=== PATIENT | male | born 1940 | race Caucasian/White ===

== ENCOUNTER 2019-06-03 22:59 | Inpatient (IN) ==
[2019-06-04] MEDS ORDERED: TYLENOL 325 MG TAB PO ONE ×2 (01:56→02:02)
[2019-06-04 02:30] LABS: BASOPHILS # (AUTO) 0.2 X10^3/uL (0.0-0.1); BASOPHILS % (AUTO) 0.9 % (0.2-1.0); EOSINOPHILS % (AUTO) 0.2 % (0.9-2.9); HEMATOCRIT 37.4 % (42.0-54.0); HEMOGLOBIN 12.6 g/dL (13.5-18.0); LYMPHOCYTES # (AUTO) 4.2 X10^3/uL (1.3-2.9); LYMPHOCYTES % (AUTO) 18.1 % (21.0-51.0); MEAN CORPUSCULAR HEMOGLOBIN 29.9 pg (27.0-34.0); MEAN CORPUSCULAR HGB CONC 33.6 g/dL (33.0-35.0); MEAN CORPUSCULAR VOLUME 88.9 fL (80.0-100.0); MEAN PLATELET VOLUME 9.3 fL (7.4-11.0); MONOCYTES # (AUTO) 1.7 x10^3/uL (0.3-0.8); MONOCYTES % (AUTO) 7.2 % (0.0-13.0); NEUTROPHILS % (AUTO) 73.6 % (42.0-75.0); PLATELET COUNT 282 X10^3/uL (150.0-450.0); RED CELL DISTRIBUTION WIDTH 14.3 % (11.6-16.5); WHITE BLOOD COUNT 23.1 X10^3/uL (3.6-10.0)
[2019-06-04 02:37] LABS: CALCIUM 9.2 mg/dL (8.5-10.1); CARBON DIOXIDE 27.8 mmol/L (21-32); CREATININE 1.53 mg/dL (0.70-1.30)
[2019-06-04 03:02] LABS: BAND NEUTROPHILS % 2 % (0-10); PLATELET MORPHOLOGY COMMENT NORMAL (NORMAL)
[2019-06-04] MEDS ORDERED: LEVAQUIN PREMIX IV 750 MG 750 MG/150 ML BAG IV ONE ×2 (03:20→03:28)
[2019-06-04] MEDS ORDERED: ROCEPHIN VIAL 1 GRAM IVP ONE (03:23)
--- NOTE | 2019-06-04 03:23 | DR.SCROTAL ---
HPI Time Seen Time Seen by Provider: 06/04/19 01:43 Complaint Chief Complaint Doctors Comments: 78 yo male with scrotal swelling and worsening pain. It has been present for ~3 wks, saw urology on . He has failure of outpt abx, pain worsened and having fevers now. The patient refused any other pain meds at this time. He denies recent sexual encounter. 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 IT IS PUFFED UP AND HARD." Self Treatment fo Chief Complaint: PT WENT TO DR ZARCO IN [place] ON TUESDAY AND RECIEVED AN ANTIBIOTIC THAT THE PATIENT STATES HE IS ALLERGIC TO. Reviewed Nurses Notes Review: Yes Source History Provided: Patient and Significant Other Mode of Arrival Mode of Arrival: Ambulatory Timing Onset of Chief Complaint: 05/23/19 PMH PMH Past Medical History: Yes Past Medical History: Diabetes Past Medical History Comment: CHRONIC LYMPHOCYTIC LEUKEMIA, PROSTATE CANCER Past Surgical History: Yes Past Surgical History Comment: PROSTATE CA, RIGHT TESTICLE REMOVED 2002 Family History History of Family Medical Conditions: Yes Family Medical History: Diabetes Mellitus, Cancer and [place] Social History Alcohol Use: None Do you use any recreational Drugs:: No Lives With: Spouse Lives Where: Home infectious screening In the last 2 months have you had wt loss of >10#?: NO Have you had fever, night sweats or hemotysis?: No Have you traveled outside the country in the last 6 months?: No Isolation: Standard ROS Review of Systems Constitutional: Fever and Fatigue Eyes: No Symptoms Reported ENTM: No Symptoms Reported Respiratoy: No Symptoms Reported Cardiovascular: No Symptoms Reported Gastrointestinal/Abdominal: Nausea Genitourinary: Pain (scrotal ); negative Dysuria Neurological: No Symptoms Reported Musculoskeletal: No Symptoms Reported Integumentary: No Symptoms Reported Hematologic/Lymphatic: No Symptoms Reported Endocrine: No Symptoms Reported Psychiatric: No Symptoms Reported All Other Systems: Reviewed and Negative PE Vital Signs Vitals: Temperature 98.7 F Pulse Rate [Right Brachial] 67 Pulse Rate [Left Brachial] 83 Pulse Rate 99 Respiratory Rate 20 Blood Pressure [Right Arm] 133/90 Blood Pressure [Left Arm] 132/55 Blood Pressure 138/62 O2 Sat by Pulse Oximetry 94 General Limitations: No Limitations General Appearance: Alert and In No Apparent Distress Head Head Exam: Normal Inspection, Atraumatic and Normocephalic Eyes Eye exam: Normal Appearance and EOMI ENT ENT Exam: Normal Exam Neck Neck Exam: Normal Inspection and Full ROM Chest Chest Inspection: Normal Inspection Respiratory Respiratory Exam: Normal Lung Sounds Bilat Respiratory Exam: Bilateral: Clear to Auscultation Cardiovascular Cardiovascular Exam: Regular Rate and Normal Rhythm Abdominal Exam Abdominal Exam: Normal Inspection, Normal Bowel Sounds and Soft Genitourinary Exam: Male: Scrotal Swelling (tenderness, ) Scrotal Exam: testicular Tenderness: Bilateral (there is only one, had Orchiectomy) and Testicular Mass: Bilateral (only one, Orchiectomy) Extremities Extremities Exam: Normal Inspection Back Back Exam: Normal Inspection Neurological Neurological Exam: Alert, Oriented X3 and CN II-XII Intact Psychiatric Psychiatric Exam: Normal Affect MDM Differential Diagnosis Differential Diagnosis: Other (orchitis and epididymitis ) COURSE Reevaluation 1st: Improved (with acetaminophen ) Consultation Consultation Comments: hospitalist accepted admission Education/Counseling Education/Counseling: Patient, Family, Education and Counseling Educated On: Treatment, Diagnosis, Prognosis, Needs for Follow Up and Other ROR Labs Reviewed Laboratory Results Reviewed?: Yes Result Diagrams: 06/05/19 04:54 06/05/19 04:54 Laboratory: 06/04/19 05:52 Urine,Clean Catch Urine Culture - Final WBC 14.9 X10^3/uL (3.6-10.0) H D 06/05/19 04:54 RBC 3.80 X10^6/uL (4.7-6.0) L 06/05/19 04:54 Hgb 11.3 g/dL (13.5-18.0) L 06/05/19 04:54 Hct 33.8 % (42.0-54.0) L 06/05/19 04:54 MCV 88.8 fL (80.0-100.0) 06/05/19 04:54 MCH 29.7 pg (27.0-34.0) 06/05/19 04:54 MCHC 33.4 g/dL (33.0-35.0) 06/05/19 04:54 RDW 14.5 % (11.6-16.5) 06/05/19 04:54 Plt Count 267 X10^3/uL (150.0-450.0) 06/05/19 04:54 Plt Count Comment Adequate (ADEQUATE) 06/04/19 02:20 MPV 9.4 fL (7.4-11.0) 06/05/19 04:54 Neut % (Auto) 72.5 % (42.0-75.0) 06/05/19 04:54 Lymph % (Auto) 19.7 % (21.0-51.0) L 06/05/19 04:54 Duval % (Auto) 6.4 % (0.0-13.0) 06/05/19 04:54 Eos % (Auto) 0.8 % (0.9-2.9) L 06/05/19 04:54 Baso % (Auto) 0.6 % (0.2-1.0) 06/05/19 04:54 Neut # (Auto) 10.8 x10^3/uL (2.2-4.8) H 06/05/19 04:54 Lymph # (Auto) 2.9 X10^3/uL (1.3-2.9) 06/05/19 04:54 Duval # (Auto) 1.0 x10^3/uL (0.3-0.8) H 06/05/19 04:54 Eos # (Auto) 0.1 x10^3/uL (0.0-0.2) 06/05/19 04:54 Baso # (Auto) 0.1 X10^3/uL (0.0-0.1) 06/05/19 04:54 Absolute Nucleated RBC 0.0 /100WBC 06/05/19 04:54 Total Counted 100 06/04/19 02:20 Neutrophils % (Manual) 66 % (39-76) 06/04/19 02:20 Band Neutrophils % 2 % (0-10) 06/04/19 02:20 Lymphocytes % (Manual) 25 % (13-43) 06/04/19 02:20 Monocytes % (Manual) 7 % (4-9) 06/04/19 02:20 Plt Morphology Comment Normal (NORMAL) 06/04/19 02:20 RBC Morphology Normal (NORMAL) 06/04/19 02:20 Sodium 138 mmol/L (136-145) 06/05/19 04:54 Corrected Sodium TNP 06/05/19 04:54 Potassium 4.1 mmol/L (3.5-5.1) 06/05/19 04:54 Chloride 104 mmol/L (98-107) 06/05/19 04:54 Carbon Dioxide 26.0 mmol/L (21-32) 06/05/19 04:54 BUN 17 mg/dL (7-18) 06/05/19 04:54 Creatinine 1.18 mg/dL (0.70-1.30) 06/05/19 04:54 Est GFR (MDRD) Af Amer > 60 (>60) 06/05/19 04:54 Est GFR (MDRD) Non-Af > 60 (>60) 06/05/19 04:54 Glucose 103 mg/dL (65-99) H 06/05/19 04:54 POC Glucose (mg/dL) 148 mg/dL (65-99) H 06/05/19 11:41 Calcium 9.5 mg/dL (8.5-10.1) 06/05/19 04:54 Corrected Calcium 10.5 mg/dL (8.5-10.1) H 06/05/19 04:54 Total Bilirubin 0.30 mg/dL (0.2-1.0) 06/05/19 04:54 AST 17 Units/L (15-37) 06/05/19 04:54 ALT 21 Units/L (12-78) 06/05/19 04:54 Alkaline Phosphatase 76 Units/L (46-116) 06/05/19 04:54 Total Protein 6.5 g/dL (6.4-8.2) 06/05/19 04:54 Albumin 2.8 g/dL (3.4-5.0) L 06/05/19 04:54 Globulin 3.7 g/dL (2.5-4.5) 06/05/19 04:54 Albumin/Globulin Ratio 0.8 Ratio (1.1-2.1) L 06/05/19 04:54 Specimen Type Clean catch urine 06/05/19 17:20 Urine Color Yellow (YELLOW) 06/05/19 17:20 Urine Appearance Clear (CLEAR) 06/05/19 17:20 Urine pH 6.0 (5.0 - 8.0) 06/05/19 17:20 Ur Specific Novelty 1.010 (1.000-1.030) 06/05/19 17:20 Urine Protein Negative (NEGATIVE) 06/05/19 17:20 Urine Glucose (UA) Negative (NEGATIVE) 06/05/19 17:20 Urine Ketones Negative (NEGATIVE) 06/05/19 17:20 Urine Occult Blood 1+ (NEGATIVE) 06/05/19 17:20 Urine Nitrite Negative (NEGATIVE) 06/05/19 17:20 Urine Bilirubin Negative (NEGATIVE) 06/05/19 17:20 Urine Urobilinogen Normal (NORMAL) 06/05/19 17:20 Ur Leukocyte Esterase Negative (NEGATIVE) 06/05/19 17:20 Urine RBC 0-2 /HPF (NONE SEEN) 06/05/19 17:20 Urine WBC None seen /HPF (NONE SEEN) 06/05/19 17:20 Ur Squamous Epith Cells Negative /HPF (NEGATIVE) 06/05/19 17:20 Amorphous Sediment Trace /HPF (NEGATIVE) 06/04/19 05:52 Urine Bacteria Negative /HPF (NEGATIVE) 06/05/19 17:20 Ur Culture Indicated? No/not indicated 06/05/19 17:20 RUN DATE: 06/05/19 [facility] LIVE PAGE 1 RUN TIME: [id number] [place] [address] Kishan Sandhu MD, Hand Plug [employer]aper Specimen Inquiry PATIENT: VERONA DUNN SR ACCT: [id number] LOC: MED/SURG U: [id number] AGE/SX: 78/M ROOM: 204 RE06/04/[address]: Taryn Troy : 1940 BED: 1 DIS: STATUS: ADM IN TLOC: SPEC : [id number] AMITA: 06/04/19 STATUS: COMP REQ : [id number] RECD: 06/04/[address]: Cuauhtemoc Greenwood M.D. ENTERED: 06/04/[address]: DIETER ARCE ORDERED: CBC, MANUAL DIFF Test Result Flag Reference CBC | | | Hemogram | | | WBC | 23.1 | H | 3.6-10.0 X10^3/uL RBC | 4.20 | L | 4.7-6.0 X10^6/uL HEMOGLOBIN | 12.6 | L | 13.5-18.0 g/dL HEMATOCRIT | 37.4 | L | 42.0-54.0 % MCV | 88.9 | | 80.0-100.0 fL MCH | 29.9 | | 27.0-34.0 pg MCHC | 33.6 | | 33.0-35.0 g/dL RDW | 14.3 | | 11.6-16.5 % PLT | 282 | | 150.0-450.0 X10^3/uL MPV | 9.3 | | 7.4-11.0 fL AUTO DIFF | | | NEUT% | 73.6 | | 42.0-75.0 % LYMPH% | 18.1 | L | 21.0-51.0 % MONO% | 7.2 | | 0.0-13.0 % EOS% | 0.2 | L | 0.9-2.9 % BASO% | 0.9 | | 0.2-1.0 % NEUT# | 17.0 | H | 2.2-4.8 x10^3/uL LYMPH# | 4.2 | H | 1.3-2.9 X10^3/uL MONO# | 1.7 | H | 0.3-0.8 x10^3/uL EOS# | 0.0 | | 0.0-0.2 x10^3/uL BASO# | 0.2 | H | 0.0-0.1 X10^3/uL NRBC (AUTO) | 0.0 | | /100WBC MANUAL DIFF | | | TOT CELLS COUNT | 100 | | NEUT% (MANUAL) | 66 | | 39-76 % BAND% | 2 | | 0-10 % LYMPH% (MANUAL) | 25 | | 13-43 % MONO% (MANUAL) | 7 | | 4-9 % PLATELET SUFFIC | ADEQUATE | | ADEQUATE PLT MORPH COM | NORMAL | | NORMAL RBC MORPH | NORMAL | | NORMAL Other Results Comments: WBC was 23k on Ed admission. Opioid Opioid Risk Tool Total: 0 Total Score Risk Category: Low Risk Copyright: [employer] predicting aberrant behaviors Diagnosis Narrative Support Text: Admitted to hospitalist team, IV levaquin and Ceftriaxone started for broad orchitis and epididymtitis coverage in ED, Time was spent educating and discussing care plan with patient. All diagnostic imaging, lab values, consult input was share and explained to patient. Time was spent answering all patient question. The patient agree and stated understanding of care plan. The pat alsostates they understood when to seek medical attention for worsening of their condition. Instructions Forms: Excuse From Work
[2019-06-04] MEDS ORDERED: ROCEPHIN VIAL 1 GRAM ONE (03:29)
[2019-06-04] MEDS: NS 1000 ML 1,000 ML IV SCH ×3 (03:43→22:19)
[2019-06-04] MEDS ORDERED: TYLENOL 325 MG TAB PO PRN (04:12)
[2019-06-04] MEDS ORDERED: NS 1000 ML 1,000 ML IV SCH (06:00)
[2019-06-04 06:11] LABS: BILIRUBIN,URINE NEGATIVE (NEGATIVE); BLOOD/HEMOGLOBIN,URINE 1+ (NEGATIVE); GLUCOSE, URINE NEGATIVE (NEGATIVE); KETONES,URINE NEGATIVE (NEGATIVE); LEUKOCYTE ESTERASE ,URINE 1+ (NEGATIVE); NITRITES,URINE NEGATIVE (NEGATIVE); PROTEIN,URINE 2+ (NEGATIVE); UROBILINOGEN,URINE NORMAL (NORMAL)
[2019-06-04 06:21] LABS: APPEARANCE,URINE CLEAR (CLEAR); COLOR,URINE YELLOW (YELLOW); RBC,URINE 0-2 /HPF (NONE SEEN)
[2019-06-04 06:22] LABS: BACTERIA,URINE TRACE /HPF (NEGATIVE); SQUAMOUS EPITHELIAL CELL,UR RARE /HPF (NEGATIVE)
[2019-06-04 06:23] LABS: AMORPHOUS SEDIMENT,UR TRACE /HPF (NEGATIVE)
[2019-06-04] MEDS ORDERED: LEVAQUIN PREMIX IV 750 MG 750 MG/150 ML BAG IV SCH (09:00)
[2019-06-04] MEDS ORDERED: NORCO 10/325 TAB PO PRN (11:04)
[2019-06-04 12:01] VITALS: BMI 32.5
[2019-06-04] MEDS ORDERED: PHARMACY CONSULT - DOSE _____ XX SCH (13:00)
[2019-06-04] MEDS ORDERED: HumuLIN R SUBCUT PRN (15:03)
--- NOTE | 2019-06-04 15:13 | US ---
HISTORY: Left testicle swelling; pain. Prior history of prostate cancer. Prior history of surgical removal of the right testicle in 2002. Study: Scrotal ultrasound Comparison: No priors Technique: Grayscale, color and duplex Doppler evaluation of the scrotum is provided. Findings: Right hemiscrotum is empty. There is normal color and duplex arterial Doppler flow to the left testicle. No evidence of testicular torsion or tumor is seen. The left testicle measures 3.42 x 3.73 x 4.58 cm. Small amount of hydrocele fluid is seen on the left. The left epididymis displays a simple cyst measuring 2.4 cm in size. No solid mass of the epididymis is seen. There is mild thickening of the scrotal wall on the left. No evidence of scrotal wall mass or fluid collection is seen. IMPRESSION: Surgically absent right testicle. No evidence of left testicular tumor or torsion. Small amount of hydrocele fluid on the left. Simple cyst of the left epididymis. Scrotal wall skin thickening. Reported By:
[2019-06-04] MEDS: LOVENOX INJ 40 MG SYR SC SCH (16:29)
[2019-06-04] MEDS: NEURONTIN TAB 600 MG PO SCH ×2 (16:30→21:47)
[2019-06-04] MEDS: GLUCOPHAGE XR PO SCH (16:30)
[2019-06-04] MEDS: LASIX PO SCH (16:30)
--- NOTE | 2019-06-04 17:40 | DR.H&P ---
H&P - History & Physical for Day of: H&P Date: 06/04/19 - Chief Complaint Chief Complaint: LEFT TESTICULAR PAIN, REDNESS AND SWELLING - History of Present Illness History of Present Illness: 78 [place] ER ADMISSION AFTER PRESENTING WITH CO "I ONLY HAVE ONE TESTICLE AND ITS REALLY SWOLLEN AND HURTS. IT IS PUFFED UP AND HARD." PT WENT TO DR ZARCO IN [place] ON TUESDAY AND RECIEVED AN ANTIBIOTIC THAT THE PATIENT STATES HE WAS ALLERGIC TO MEDICATION. PT HAS PMH OF DM, HTN, OA. PT WBC 23K IN ER. PT ADMITTED FOR TREATMENT AND EVALUATION OF ACUTE ILLNESS. - Past Medical History Past Medical History: Arthritis, Diabetes, Hypertension - Past Surgical History Surgical History: Other (RIGHT TESTICLE REMOVED 2004) - Family History Family Medical History: Diabetes Mellitus, Cancer - Social History Does patient currently use any type of tobacco product: No Have you used tobacco products in the last 12 months: No Type of Tobacco Use: None Does any household member use tobacco: No Alcohol Use: None Drug Use: None - Medications Home Medications: codeine Allergy (Verified 06/03/19 23:22) diphenhydramine [From Benadryl] Allergy (Verified 06/03/19 23:22) doxycycline Allergy (Verified 06/03/19 23:22) CONTINUE taking the following medications furosemide 40 mg PO DAILY 06/03/19 [History] gabapentin 600 mg PO TID 06/03/19 [History] glimepiride 4 mg PO DAILY 06/03/19 [History] lisinopril-hydrochlorothiazide 1 tab PO DAILY 06/03/19 [History] metformin 1,000 mg PO DAILY 06/03/19 [History] montelukast 10 mg PO HS 06/03/19 [History] oxybutynin chloride 15 mg PO DAILY 06/03/19 [History] pantoprazole 40 mg PO DAILY 06/03/19 [History] tamsulosin 1 cap PO DAILY 06/03/19 [History] doxycycline hyclate 100 mg PO BID 06/04/19 [History] hydrocodone-acetaminophen 1 tab PO Q6H PRN 06/04/19 [History] - Review of Systems Constitutional: Fever, Weakness Eyes: No Symptoms Reported ENT: No Symptoms Reported, Ear Discharge Cardiovascular: No Symptoms Reported Gastrointestinal: Nausea Genitourinary: Other (LEFT TESTICULAR PAIN) Musculoskeletal: Back Pain Skin: Other (REDNESS TO SCROTUM) - Physical Exam Vital Signs: Temperature 97.6 F Pulse Rate [Right Brachial] 84 Pulse Rate [Left Brachial] 83 Pulse Rate 99 Respiratory Rate 20 Blood Pressure [Right Arm] 123/58 Blood Pressure [Left Arm] 132/55 Blood Pressure 138/62 O2 Sat by Pulse Oximetry 96 Oriented: Normal Eyes: Normal Ear: Normal Nose: Normal Throat: Normal Respiratory: RLL Diminished, LLL Diminished Cardiovascular: Normal : Normal Auscultation: Bowel Sounds: Normal Palpation: Normal Tenderness: Normal Skin: Red, Tender (LOCALIZED TO LEFT TESTICLE), Hot Musculoskeletal: Normal Psychiatric: Anxiety Affect: Anxious Speech Pattern: Clear, Appropriate - Assessment/Plan (1) Orchitis and epididymitis Status: Acute Plan: ADMIT, BLOOD AND URINE CULTURE ON ADMISSION. PAIN CONTROL, TESTICULAR US. IV ABTX ROCEPHIN AND LEVAQUIN. AM LABS, RESUME HOME MEDICATION (2) HTN (hypertension) Status: Acute (3) Diabetes Status: Acute - Allergies Allergies/Adverse Reactions: Allergies Allergy/AdvReac Type Severity Reaction Status Date / Time codeine Allergy Verified 06/03/19 23:22 diphenhydramine Allergy Verified 06/03/19 23:22 [From Benadryl] doxycycline Allergy Verified 06/03/19 23:22
[2019-06-04] MEDS: SINGULAIR TAB 10 MG PO SCH (20:54)
[2019-06-04] MEDS: SNACK - Diabetic Appropriate PO SCH (20:57)
[2019-06-05 05:37] LABS: BASOPHILS # (AUTO) 0.1 X10^3/uL (0.0-0.1); BASOPHILS % (AUTO) 0.6 % (0.2-1.0); EOSINOPHILS # (AUTO) 0.1 x10^3/uL (0.0-0.2); EOSINOPHILS % (AUTO) 0.8 % (0.9-2.9); HEMATOCRIT 33.8 % (42.0-54.0); HEMOGLOBIN 11.3 g/dL (13.5-18.0); LYMPHOCYTES # (AUTO) 2.9 X10^3/uL (1.3-2.9); LYMPHOCYTES % (AUTO) 19.7 % (21.0-51.0); MEAN CORPUSCULAR HEMOGLOBIN 29.7 pg (27.0-34.0); MEAN CORPUSCULAR HGB CONC 33.4 g/dL (33.0-35.0); MEAN CORPUSCULAR VOLUME 88.8 fL (80.0-100.0); MEAN PLATELET VOLUME 9.4 fL (7.4-11.0); MONOCYTES % (AUTO) 6.4 % (0.0-13.0); NEUTROPHILS # (AUTO) 10.8 x10^3/uL (2.2-4.8); NEUTROPHILS % (AUTO) 72.5 % (42.0-75.0); PLATELET COUNT 267 X10^3/uL (150.0-450.0); RED CELL DISTRIBUTION WIDTH 14.5 % (11.6-16.5); WHITE BLOOD COUNT 14.9 X10^3/uL (3.6-10.0)
[2019-06-05 06:05] LABS: ALANINE AMINOTRANSFERASE 21 Units/L (12-78); ALBUMIN 2.8 g/dL (3.4-5.0); ALKALINE PHOSPHATASE 76 Units/L (46-116); ASPARTATE AMINO TRANSFERASE 17 Units/L (15-37); BLOOD UREA NITROGEN 17 mg/dL (7-18); CALCIUM 9.5 mg/dL (8.5-10.1); CHLORIDE 104 mmol/L (98-107); COR CA(FOR HYPOALB) 10.5 mg/dL (8.5-10.1); CREATININE 1.18 mg/dL (0.70-1.30); SODIUM 138 mmol/L (136-145); TOTAL PROTEIN 6.5 g/dL (6.4-8.2); eGFR NON BLACK RACES > 60 (>60)
[2019-06-05] MEDS: NEURONTIN TAB 600 MG PO SCH ×3 (06:07→14:41)
[2019-06-05] MEDS: PROTONIX TAB 40 MG PO SCH (09:04)
[2019-06-05] MEDS: ROCEPHIN VIAL 1 GRAM IVP SCH (09:04)
[2019-06-05] MEDS: LASIX PO SCH (09:05)
[2019-06-05] MEDS: FLOMAX PO SCH (09:05)
[2019-06-05] MEDS: LOVENOX INJ 40 MG SYR SC SCH (09:06)
[2019-06-05] MEDS: ZESTORETIC 10/ 12.5MG PO SCH (09:06)
[2019-06-05] MEDS: NS 1000 ML 1,000 ML IV SCH (09:08)
[2019-06-05] MEDS: GLUCOPHAGE XR PO SCH (09:24)
[2019-06-05 17:34] LABS: BILIRUBIN,URINE NEGATIVE (NEGATIVE); BLOOD/HEMOGLOBIN,URINE 1+ (NEGATIVE); GLUCOSE, URINE NEGATIVE (NEGATIVE); KETONES,URINE NEGATIVE (NEGATIVE); LEUKOCYTE ESTERASE ,URINE NEGATIVE (NEGATIVE); NITRITES,URINE NEGATIVE (NEGATIVE); PROTEIN,URINE NEGATIVE (NEGATIVE); UROBILINOGEN,URINE NORMAL (NORMAL)
[2019-06-05 17:39] LABS: APPEARANCE,URINE CLEAR (CLEAR); COLOR,URINE YELLOW (YELLOW)
[2019-06-05 17:41] LABS: BACTERIA,URINE NEGATIVE /HPF (NEGATIVE); RBC,URINE 0-2 /HPF (NONE SEEN); SQUAMOUS EPITHELIAL CELL,UR NEGATIVE /HPF (NEGATIVE)
[2019-06-05] MEDS ORDERED: NEURONTIN TAB 600 MG ONE (20:28)
[2019-06-05] MEDS: SINGULAIR TAB 10 MG PO SCH (20:37)
[2019-06-05] MEDS: SNACK - Diabetic Appropriate PO SCH (20:40)
[2019-06-05] MEDS ORDERED: NEURONTIN TAB 600 MG PO SCH (21:00)
[2019-06-05] MEDS ORDERED: GLUCOPHAGE XR PO SCH (21:00)
[2019-06-06] MEDS: NS 1000 ML 1,000 ML IV SCH (00:02)
[2019-06-06 05:50] LABS: BASOPHILS # (AUTO) 0.1 X10^3/uL (0.0-0.1); BASOPHILS % (AUTO) 0.7 % (0.2-1.0); EOSINOPHILS # (AUTO) 0.3 x10^3/uL (0.0-0.2); EOSINOPHILS % (AUTO) 2.1 % (0.9-2.9); HEMATOCRIT 33.8 % (42.0-54.0); HEMOGLOBIN 11.3 g/dL (13.5-18.0); LYMPHOCYTES # (AUTO) 3.3 X10^3/uL (1.3-2.9); LYMPHOCYTES % (AUTO) 25.9 % (21.0-51.0); MEAN CORPUSCULAR HEMOGLOBIN 29.6 pg (27.0-34.0); MEAN CORPUSCULAR HGB CONC 33.3 g/dL (33.0-35.0); MEAN CORPUSCULAR VOLUME 88.9 fL (80.0-100.0); MEAN PLATELET VOLUME 9.7 fL (7.4-11.0); MONOCYTES % (AUTO) 7.5 % (0.0-13.0); NEUTROPHILS # (AUTO) 8.2 x10^3/uL (2.2-4.8); NEUTROPHILS % (AUTO) 63.8 % (42.0-75.0); PLATELET COUNT 277 X10^3/uL (150.0-450.0); RED BLOOD COUNT 3.81 X10^6/uL (4.7-6.0); RED CELL DISTRIBUTION WIDTH 14.2 % (11.6-16.5); WHITE BLOOD COUNT 12.8 X10^3/uL (3.6-10.0)
[2019-06-06] MEDS ORDERED: LEVAQUIN PREMIX IV 750 MG 750 MG/150 ML BAG IV SCH (06:00)
[2019-06-06 06:06] LABS: ALANINE AMINOTRANSFERASE 19 Units/L (12-78); ALBUMIN 2.8 g/dL (3.4-5.0); ALKALINE PHOSPHATASE 77 Units/L (46-116); ASPARTATE AMINO TRANSFERASE 12 Units/L (15-37); BLOOD UREA NITROGEN 15 mg/dL (7-18); CALCIUM 8.9 mg/dL (8.5-10.1); CARBON DIOXIDE 27.2 mmol/L (21-32); CHLORIDE 102 mmol/L (98-107); COR CA(FOR HYPOALB) 9.9 mg/dL (8.5-10.1); COR NA(FOR HYPERGLY) 138 mmol/L (136-145); CREATININE 1.17 mg/dL (0.70-1.30); SODIUM 137 mmol/L (136-145); TOTAL PROTEIN 6.4 g/dL (6.4-8.2); eGFR NON BLACK RACES > 60 (>60)
[2019-06-06] MEDS ORDERED: NEURONTIN TAB 600 MG PO SCH (09:00)
[2019-06-06] MEDS: FLOMAX PO SCH (09:04)
[2019-06-06] MEDS: LASIX PO SCH (09:04)
[2019-06-06] MEDS: ZESTORETIC 10/ 12.5MG PO SCH (09:05)
[2019-06-06] MEDS: ROCEPHIN VIAL 1 GRAM IVP SCH (09:05)
[2019-06-06] MEDS: PROTONIX TAB 40 MG PO SCH (09:05)
[2019-06-06] MEDS: LOVENOX INJ 40 MG SYR SC SCH (10:02)
[2019-06-06 16:08] VITALS: BP 117/55
== END 2019-06-06 16:25 | disposition home or self-care (01) | DRG 728 ==
LOC: ER 23:10 → MED/SURG 06-04 05:41
PROVIDERS: ADMIT Internal Medicine; ATTEND Internal Medicine
DX: N50.89 Other specified disorders of the male genital organs; I10 Essential (primary) hypertension; I25.10 Atherosclerotic heart disease of native coronary artery without angina pectoris; E11.65 Type 2 diabetes mellitus with hyperglycemia; N50.82 Scrotal pain; N45.3 Epididymo-orchitis
CPT/HCPCS: 36415; 76870; 80048; 80053; 81001; 85025; 87040; 87086; 96365; 96367; 96374; 96375; 99284; A4222; J0696; J1650; J1956; J3490; J7030